=== PATIENT | female | born 1985 | race Two or more races ===

== ENCOUNTER 2025-01-22 08:50 | Inpatient (IN) | payer OTHER ==
[~2025-01-22] VITALS: Ht 165.1 cm; Wt 113.4 kg
[2025-01-22] MEDS ORDERED: IRBESARTAN150 MG PO (09:08)
[2025-01-22] MEDS ORDERED: ONDANSETRON HCL 2 MG/ML VIAL IV ONE (09:45)
[2025-01-22] MEDS ORDERED: FAMOTIDINE/PF 20 MG in 0.9 % SODIUM CHLORIDE 10 ML IV ONE (09:45)
[2025-01-22] MEDS ORDERED: SODIUM CHLORIDE 0.45 % 500 ML IV ONE (09:45)
[2025-01-22 10:42] LABS: BASO % 0.2 % (0.1-1.2); EOS # 0.03 (0.04-0.54); EOS % 0.2 % (0.7-7.0); LYMPH # 1.28 (1.18-3.74); LYMPH % 9.2 % (19.3-53.1); MEAN PLATELET VOLUME 9.40 fl (9.4-12.4); MONO # 0.84 (0.24-0.82); MONO % 6.0 % (4.7-12.5); NEUT # 11.72 (1.56-6.13); NEUT % 84.2 % (34.0-71.1); RED CELL DISTRIBUTION WIDTH 13.1 % (11.6-14.4)
[2025-01-22 11:37] LABS: ALT/SGPT 21.0 U/L (12-78); AST/SGOT 9.0 U/L (15-37); BILIRUBIN TOTAL 0.91 mg/dL (0.3-1.2); BUN CREA RATIO 21.0 (7.0-25.0); CREATININE SERUM 0.56 mg/dL (0.55-1.02); GFR 119.9; GLOBULINA 4.0 G/DL (2.4-3.5); GLUCOSE FASTING 102.0 mg/dL (65-100); OSMOLALITY SERUM 277.0 MOSM/KG (275-295)
[2025-01-22 11:38] LABS: URINE APPEARANCE Cloudy; URINE BILIRRUBIN Negative (NEGATIVE); URINE BLOOD Negative; URINE COLOR Yellow; URINE GLUCOSE Negative (NEGATIVE); URINE KETONE 15 (NEGATIVE); URINE LEUKOCYTE Negative; URINE NITRATE Negative; URINE PROTEIN Trace (NEGATIVE); URINE UROBILINOGEN 1.0 E.U./dl
[2025-01-22 11:42] LABS: URINE BACTERIA 1958.2 uL (0.0-1933); URINE EPITHELIAL CELLS 42.7 uL (0.0-38.8); URINE RBC 28.0 uL (0.0-20.8); URINE WBC 5.6 uL (0.0-23.2)
[2025-01-22 11:49] LABS: URINE CAST 0.00 uL (0.0-1.40)
[2025-01-22] MEDS ORDERED: CIPROFLOXACIN IN 5 % DEXTROSE 400 MG/200 ML PIGGYBAG IV ONE (14:00)
[2025-01-22 20:47] LABS: INR 1.08
[2025-01-22] MEDS ORDERED: CIPROFLOXACIN IN 5 % DEXTROSE 200 ML IV SCH (21:18)
[2025-01-22] MEDS ORDERED: MORPHINE SULFATE 4 MG/ML CARTRIDGE IV PRN (21:30)
[2025-01-22] MEDS ORDERED: 0.9 % SODIUM CHLORIDE 1,000 ML IV SCH (21:30)
[2025-01-22] MEDS ORDERED: ACETAMINOPHEN 325 MG TABLET PO PRN (21:30)
[2025-01-22] MEDS ORDERED: ONDANSETRON HCL 4 MG in 0.9 % SODIUM CHLORIDE 50 ML IV PRN (21:30)
[2025-01-22] MEDS ORDERED: IRBESARTAN 75 MG TABLET PO SCH (21:45)
[2025-01-23 03:43] VITALS: BP 133/84; O2SAT 96
[2025-01-23 08:00] VITALS: BP 119/84; O2SAT 96
[2025-01-23] MEDS ORDERED: IRBESARTAN 150 MG TABLET PO SCH (09:00)
[2025-01-23 17:55] VITALS: BP 115/79; O2SAT 98
[2025-01-24 07:42] LABS: BASO % 0.5 % (0.1-1.2); EOS # 0.20 (0.04-0.54); EOS % 1.6 % (0.7-7.0); LYMPH # 2.23 (1.18-3.74); LYMPH % 18.0 % (19.3-53.1); MEAN PLATELET VOLUME 9.40 fl (9.4-12.4); MONO # 1.08 (0.24-0.82); MONO % 8.7 % (4.7-12.5); NEUT # 8.78 (1.56-6.13); NEUT % 70.9 % (34.0-71.1); RED CELL DISTRIBUTION WIDTH 13.4 % (11.6-14.4)
[2025-01-24 08:00] VITALS: BP 123/81; O2SAT 96
[2025-01-24 17:12] VITALS: BP 119/68; O2SAT 98
[2025-01-25 00:53] VITALS: BP 104/74; O2SAT 97
[2025-01-25 13:53] LABS: BASO % 0.5 % (0.1-1.2); EOS # 0.24 (0.04-0.54); EOS % 3.1 % (0.7-7.0); LYMPH # 1.44 (1.18-3.74); LYMPH % 18.4 % (19.3-53.1); MEAN PLATELET VOLUME 9.20 fl (9.4-12.4); MONO # 0.53 (0.24-0.82); MONO % 6.8 % (4.7-12.5); NEUT # 5.56 (1.56-6.13); NEUT % 70.8 % (34.0-71.1); RED CELL DISTRIBUTION WIDTH 13.1 % (11.6-14.4)
[2025-01-25 14:39] LABS: BUN CREA RATIO 12.0 (7.0-25.0); CREATININE SERUM 0.58 mg/dL (0.55-1.02); GFR 115.14; GLUCOSE FASTING 75.0 mg/dL (65-100); OSMOLALITY SERUM 276.0 MOSM/KG (275-295)
== END 2025-01-25 17:09 | disposition home or self-care (01) | DRG 373 ==
LOC: ER 08:54 → SURG 21:23
PROVIDERS: General Practice; Preventive Medicine Public Health & General Preventive Medicine; ADMIT Student in an Organized Health Care Education/Training Program; ATTEND Student in an Organized Health Care Education/Training Program
PROC: BW21ZZZ Computerized Tomography (CT Scan) of Abdomen and Pelvis (ICD-10-PCS; principal; 2025-01-22)
PROC: BW21YZZ Computerized Tomography (CT Scan) of Abdomen and Pelvis using Other Contrast (ICD-10-PCS; 2025-01-23)
DX: K35.32 Acute appendicitis with perforation, localized peritonitis, and gangrene, without abscess (principal); I10 Essential (primary) hypertension

== ENCOUNTER 2025-04-26 23:27 | Inpatient (IN) | payer OTHER ==
[~2025-04-26] VITALS: Ht 152.4 cm; Wt 112.9 kg
[~2025-04-26 23:27] MED LIST: IRBESARTAN150 MG PO
[2025-04-27] MEDS ORDERED: CIPROFLOXACIN IN 5 % DEXTROSE 200 ML IV SCH (00:19)
[2025-04-27] MEDS ORDERED: 0.9 % SODIUM CHLORIDE 1,000 ML IV ONE (00:30)
[2025-04-27] MEDS ORDERED: MORPHINE SULFATE 4 MG/ML CARTRIDGE IV STA ×2 (00:45→05:10)
[2025-04-27 00:52] LABS: BASO % 0.5 % (0.1-1.2); EOS # 0.23 (0.04-0.54); EOS % 1.9 % (0.7-7.0); LYMPH # 1.75 (1.18-3.74); LYMPH % 14.3 % (19.3-53.1); MEAN PLATELET VOLUME 9.20 fl (9.4-12.4); MONO # 0.86 (0.24-0.82); MONO % 7.0 % (4.7-12.5); NEUT # 9.33 (1.56-6.13); NEUT % 76.1 % (34.0-71.1); RED CELL DISTRIBUTION WIDTH 13.6 % (11.6-14.4)
[2025-04-27 01:12] LABS: INR 1.02
[2025-04-27 01:54] LABS: URINE APPEARANCE Clear; URINE BILIRRUBIN Negative (NEGATIVE); URINE BLOOD Negative; URINE COLOR Dark Yellow; URINE GLUCOSE Negative (NEGATIVE); URINE KETONE 15 (NEGATIVE); URINE LEUKOCYTE Negative; URINE NITRATE Negative; URINE PROTEIN Negative (NEGATIVE); URINE UROBILINOGEN 1.0 E.U./dl
[2025-04-27 01:57] LABS: ALT/SGPT 18 U/L (12-78); AST/SGOT 9 U/L (15-37); BILIRUBIN TOTAL 0.73 mg/dL (0.3-1.2); BILIRUBIN,CONJUGATED 0.19 mg/dL (0.0-0.2); BUN CREA RATIO 21 (7.0-25.0); CREATININE SERUM 0.63 mg/dL (0.55-1.02); GFR 104.66; GLOBULINA 3.9 G/DL (2.4-3.5); GLUCOSE FASTING 95 mg/dL (65-100); OSMOLALITY SERUM 279 MOSM/KG (275-295)
[2025-04-27 01:58] LABS: URINE BACTERIA 1812.0 uL (0.0-1933); URINE EPITHELIAL CELLS 18.7 uL (0.0-38.8); URINE RBC 43.1 uL (0.0-20.8); URINE WBC 21.6 uL (0.0-23.2)
[2025-04-27 02:00] LABS: HCG QUANTITATIVE < 1 mUI/mL (1-3)
[2025-04-27 02:08] LABS: URINE CAST 0.14 uL (0.0-1.40)
[2025-04-27] MEDS ORDERED: ENALAPRILAT DIHYDRATE 1.25 MG/ML VIAL IV PRN (10:00)
[2025-04-27] MEDS ORDERED: ONDANSETRON HCL 4 MG in 0.9 % SODIUM CHLORIDE 50 ML IV PRN (10:00)
[2025-04-27] MEDS ORDERED: MORPHINE SULFATE 4 MG/ML CARTRIDGE IV PRN (12:45)
[2025-04-27] MEDS ORDERED: ONDANSETRON HCL 2 MG/ML VIAL IV PRN (12:45)
[2025-04-27] MEDS ORDERED: 0.9 % SODIUM CHLORIDE 1,000 ML IV SCH (13:00)
[2025-04-27] MEDS ORDERED: ISOPROPYL ALCOHOL 30 ML OUNCE TOP ONE (13:30)
[2025-04-27] MEDS ORDERED: BUPIVACAINE HCL 30 ML VIAL IV ONE (13:30)
[2025-04-27] MEDS ORDERED: LIDOCAINE HCL 1%/EPINEPHRINE 20ML VIAL IJ ONE (13:30)
[2025-04-27] MEDS ORDERED: SUGAMMADEX SODIUM 200 MG/2 ML VIAL IV ONE (14:00)
[2025-04-27] MEDS ORDERED: levoFLOXacin IN DEXTROSE 5 % 5 MG/ML PIGGYBAG IV SCH (17:00)
[2025-04-27 17:20] VITALS: BP 106/70; O2SAT 98
[2025-04-28] VITALS: BP 112/68; O2SAT 97
[2025-04-28 06:50] LABS: BASO % 0.2 % (0.1-1.2); EOS # 0.10 (0.04-0.54); EOS % 0.8 % (0.7-7.0); LYMPH # 1.43 (1.18-3.74); LYMPH % 12.0 % (19.3-53.1); MEAN PLATELET VOLUME 9.40 fl (9.4-12.4); MONO # 0.65 (0.24-0.82); MONO % 5.5 % (4.7-12.5); NEUT # 9.68 (1.56-6.13); NEUT % 81.2 % (34.0-71.1); RED CELL DISTRIBUTION WIDTH 13.9 % (11.6-14.4)
[2025-04-28 07:34] LABS: BUN CREA RATIO 11.0 (7.0-25.0); CREATININE SERUM 0.56 mg/dL (0.55-1.02); GFR 119.9; GLUCOSE FASTING 92.0 mg/dL (65-100); OSMOLALITY SERUM 280.0 MOSM/KG (275-295)
[2025-04-28 08:00] VITALS: BP 109/75; O2SAT 96
== END 2025-04-28 15:16 | disposition home or self-care (01) | DRG 397 ==
LOC: ER 23:27 → SURG 04-27 10:21 → SURH 04-27 10:21
PROVIDERS: General Practice; Surgery; ADMIT Student in an Organized Health Care Education/Training Program; ATTEND Student in an Organized Health Care Education/Training Program
PROC: 0WQF4ZZ Repair Abdominal Wall, Percutaneous Endoscopic Approach (ICD-10-PCS; 2025-04-27)
PROC: BW21YZZ Computerized Tomography (CT Scan) of Abdomen and Pelvis using Other Contrast (ICD-10-PCS; 2025-04-27)
PROC: 0DTJ4ZZ Resection of Appendix, Percutaneous Endoscopic Approach (ICD-10-PCS; principal; 2025-04-27 12:00)
DX: K43.9 Ventral hernia without obstruction or gangrene (principal); K35.32 Acute appendicitis with perforation, localized peritonitis, and gangrene, without abscess; K35.33 Acute appendicitis with perforation, localized peritonitis, and gangrene, with abscess; N80.549 Endometriosis of the appendix, unspecified depth; R10.31 Right lower quadrant pain